=== PATIENT | female | born 1955 | race Caucasian/White ===

== ENCOUNTER → 2017-01-16 | Outpatient (CLI) | payer BC ==
--- NOTE | 2017-01-16 15:32 | CONS ---
DATE OF CONSULTATION: Consultation for sleep apnea. A 61-year-old female patient who is coming in for a re-evaluation regarding obstructive sleep apnea. The patient was given a diagnosis of JORGE in [address] Pablo. Back then, the patient had a sleep study that showed an AHI of 5. The apnea-hypopnea index during REM sleep was as high as 23. The patient was given CPAP at a pressure of 10 cm of water, which she never used. In the interim, the patient has lost around 20 pounds. She used to weigh 195 and currently she is down to 175. She had known. No witnessed apneas. No excessive hypersomnia or sleepiness during the day. She goes to bed around 10 p.m., wakes up at 5:15 a.m. in the morning, does not take any naps during the day. She is able to fall asleep immediately. At time she wakes up in the middle of the night for urination. No sleepwalking or sleeptalking. No restlessness in the lower extremities. PAST MEDICAL HISTORY: 1. JORGE; details discussed above. 2. Obesity. 3. Diabetes mellitus. 4. Hypothyroidism. 5. Hypertension. 6. Bronchial asthma. PAST SURGICAL HISTORY: Surgical history includes orthopedic surgery involving the toe. Drug allergies are not known. Outpatient medication list includes Janumet twice a day 4, Farxiga 10 mg p.o. daily, Synthroid 100 mcg p.o. daily, losartan 100 mg p.o. daily, Singulair 10 q. daily, Symbicort 160/4.5 two puff twice daily, Motrin 800 mg on a p.r.n. basis, Nystatin p.r.n., Probiotic p.r.n., ( ) ER 4 mg p.o. q. daily. Family history is negative for sleep apnea. SOCIAL HISTORY: No smoking, no history of alcohol, no history of IV drugs. REVIEW OF SYSTEMS: A 12-point review of systems was done. Positive findings as mentioned above in history of present illness. Of significance is the absence of feeling drowsy or sleeping while driving. The patient does not fall asleep while driving, has not gotten involved into a motor vehicle accident because of feeling drowsy or sleepy. BP is 135/81, pulse 76, respirations 18, temperature 97.8, saturation 96% on room air. Neck size 15-3/4 inches. [place] score is 9. BMI is 36.9. Weight is 175. Height is 57-3/4 inches. GENERAL APPEARANCE: Calm, comfortable. HEENT: Short neck, crowding posterior pharynx. There is no goiter, neck masses. LUNGS: Clear to auscultation. HEART: Sounds are regular rate and rhythm. Normal S1, S2. No S3, no S4. No murmurs. ABDOMEN: Soft, nontender. No organomegaly. EXTREMITIES: No edema. No cyanosis or clubbing. IMPRESSION: 1. Mild obstructive sleep apnea with an apnea-hypopnea index of 5. The patient is currently here for re-evaluation. She has lost around 20 pounds. No active symptomatology at this point. 2. Asthma, controlled. 3. Hypertension. 4. Hypothyroidism. 5. Diabetes mellitus. PLAN: 1. Encourage further weight loss. 2. Re-evaluate this patient with a home sleep study. We will reassess the severity of obstructive sleep apnea and decide if she will need any treatment. Based on my evaluation; however, the patient's disease was mild at baseline and she could have improved x 20 pounds weight loss that she had over the past 8 to 9 years. Will continue to follow and make further recommendations based on the results of the home sleep study.
== END | disposition home or self-care (01) ==
LOC: SLEEP 11:43
PROVIDERS: ATTEND Internal Medicine Critical Care Medicine
DX: G47.33 Obstructive sleep apnea (adult) (pediatric) (principal); I10 Essential (primary) hypertension; E03.9 Hypothyroidism, unspecified; E66.9 Obesity, unspecified; E11.9 Type 2 diabetes mellitus without complications; J45.909 Unspecified asthma, uncomplicated; Z68.36 Body mass index [BMI] 36.0-36.9, adult; Z79.84 Long term (current) use of oral hypoglycemic drugs; Z79.899 Other long term (current) drug therapy
CPT/HCPCS: 99211

== ENCOUNTER → 2021-11-25 | Outpatient (CLI) | payer BC ==
--- NOTE | 2021-11-25 08:15 | MR ---
EXAMINATION TYPE: MR iac wo/w con DATE OF EXAM: 11/25/2021 COMPARISON: NONE HISTORY: Hearing Loss with occasional dizziness TECHNIQUE: Multiplanar, multisequence images of the brain and brainstem is performed without and with IV contras t, utilizing 7ml mL intravenous Gadavist . FINDINGS: Diffusion weighted images demonstrate no evidence of a recent infarct or other diffusion ab normality. The ventricular system and cisternal spaces are normal in size and appearance. The brain volume is age appropriate. Occasional scattered tiny focus of T2 hyperintensity is seen throughout th e white matter bilaterally. Midline structures demonstrate normal morphology. The craniocervical junction appears within normal limits. Normal vascular flow voids are seen. Mild mucosal thickening involving ethmoid sinuses bilate rally. The visualized globes are intact. No suspicious opacification of the mastoid air cells bilaterally. The vestibulocochlear complexes are symmetric and felt within normal limits. No suspicious enhancing cerebellopontine angle mass is iden tified bilaterally. IMPRESSION:
== END | disposition home or self-care (01) ==
LOC: RADMRIMAIN 07:06
PROVIDERS: ATTEND Otolaryngology
DX: H91.90 Unspecified hearing loss, unspecified ear (principal)
CPT/HCPCS: 70553

== ENCOUNTER → 2023-09-11 | Outpatient (CLI) | payer MEDICARE ==
--- NOTE | 2023-09-12 18:35 | MM ---
Reason for Exam: Screening (asymptomatic). Last mammogram was performed 9 year(s) and 0 month(s) ago. Patient History: Menarche at age 15. First Full-Term at age 30. Left ovary removed at age 41. Right ovary removed at age 41. Hysterectomy at age 41. Postmenopausal. 1980, Benign Excisional Biopsy on the left side. Risk Values: Angeles 5 year model risk: 2.2%. NCI Lifetime model risk: 7.9%. Prior Study Comparison: 08/23/2012 Bilateral Screening Mammogram, [facility]. 09/10/2013 Bilateral Screening Mammogram, [facility]. 09/15/2014 Bilateral Screening Mammogram, [facility]. Tissue Density: There are scattered fibroglandular densities. Findings: Analyzed By CAD. Pattern appears symmetrical and stable. No significant interval change is evident. No suspicious groups of microcalcifications, spiculated or lobular masses, architectural distortion or other secondary signs of malignancy are mammographically apparent. Overall Assessment: Benign, BI-RAD 2 Management: Screening Mammogram of both breasts in 1 year. A negative mammogram report should not preclude additional follow up of suspicious palpable abnormalities. Patient should continue monthly self breast exam. A clinical breast exam by your physician is recommended on an annual basis and results should be correlated with mammographic findings. Electronically signed and approved by: Luis Lange D.O. Radiologis
== END | disposition home or self-care (01) ==
LOC: RADMAMWWP 07:28
PROVIDERS: ATTEND Family Medicine
DX: Z12.31 Encounter for screening mammogram for malignant neoplasm of breast (principal); Z78.0 Asymptomatic menopausal state
CPT/HCPCS: 77063; 77067

== ENCOUNTER → 2024-09-12 | Outpatient (CLI) | payer MEDICARE ==
--- NOTE | 2024-09-15 08:57 | MM ---
Reason for Exam: Screening (asymptomatic). Last screening mammogram was performed 12 month(s) ago. Patient History: Menarche at age 15. First Full-Term at age 30. Left ovary removed at age 41. Right ovary removed at age 41. Hysterectomy at age 41. Postmenopausal. Patient used Hormonal Contraceptives for 15 years. Patient used Estrogen and Progesterone for 10 years. 1980, Benign Excisional Biopsy on the left side. Risk Values: Angeles 5 year model risk: 2.2%. NCI Lifetime model risk: 7.6%. Prior Study Comparison: 09/10/2013 Bilateral Screening Mammogram, [facility]. 09/15/2014 Bilateral Screening Mammogram, [facility]. 09/11/2023 Bilateral MG 3D screening mammo w/cad, [facility]. Tissue Density: There are scattered areas of fibroglandular density. Findings: Analyzed By CAD. Right breast: There is no suspicious group of microcalcifications or new suspicious mass. Left breast: There is no suspicious group of microcalcifications or new suspicious mass. Overall Assessment: Negative, BI-RAD 1 Management: Screening Mammogram of both breasts in [address] [facility] will attempt to contact patient to return for supplemental views and ultrasound if indicated. Patient should continue monthly self-breast exams. A clinical breast exam by your physician is recommended on an annual basis. This exam should not preclude additional follow-up of suspicious palpable abnormalities. Note on Angeles scores and lifetime risk: 1. A Angeles score greater than 3% is considered moderate risk. If this is the case, consider specialist referral to assess eligibility for a risk reducing agent. 2. If overall lifetime risk for the development of breast cancer is 20% or higher, the patient may qualify for future screening with alternating mammogram and breast MRI. [facility], , 09/15/2024 8:54 AM. Electronically signed and approved by: Ross Escalante DO
== END | disposition home or self-care (01) ==
LOC: RADMAMWWP 09:15
PROVIDERS: ATTEND Family Medicine
DX: Z12.31 Encounter for screening mammogram for malignant neoplasm of breast (principal); R92.323 Mammographic fibroglandular density, bilateral breasts; Z78.0 Asymptomatic menopausal state; Z90.722 Acquired absence of ovaries, bilateral; Z92.0 Personal history of contraception
CPT/HCPCS: 77063; 77067